=== PATIENT | male | born 1945 | race Caucasian/White ===

== ENCOUNTER → 2019-12-09 10:44 | Outpatient (CLI) | payer MEDICARE, BC ==
[2016-02-21 07:16] VITALS: BMI 25.6
[~2019-12-09 10:44] MED LIST: ASPIRIN325 MG PO; BAYER CHEWABLE81 MG PO; BRILINTA90 MG PO; FISH OIL 1,0001 CA1; HYZAAR 100-25 T1 TAB PO; LIPITOR20 MG PO; LIVALO2 MG PO; METOPROLOL TAR100 M1 PO; NITROSTAT0.3 MG SL; SPIRIVA18 MCG INH; XALATAN 0.0052.5 ML EACH EYE
== END | disposition home or self-care (01) ==
LOC: D.HCCECHO 10:44
PROVIDERS: ATTEND Internal Medicine Cardiovascular Disease
DX: I25.10 Atherosclerotic heart disease of native coronary artery without angina pectoris (principal)